=== PATIENT | male | born 2000 | race African-American/Black ===

== ENCOUNTER 2019-03-16 16:40 | Emergency (ER) | payer OTHER ==
[~2019-03-16] VITALS: Ht 170.2 cm; Wt 82.7 kg
[2019-03-16 16:41] VITALS: BP 141/79
--- NOTE | 2019-03-16 17:14 | REP ---
Clinical: Trauma/injury. Technique: AP, lateral, bilateral oblique views of the left first digit. Findings: Soft-tissue swelling at the nail bed overlying the distal phalanx is suggested. No subcutaneous emphysema or foreign body. The osseous structures and joint spaces appear intact without acute fracture or dislocation. Impression: Swelling over the distal phalanx. No acute fracture or dislocation. Electronically Signed by Shadi Russo MD 03/16/2019 05:06 P
[2019-03-16] MEDS ORDERED: ADACEL/BOOSTRIX VACCINE (DIPHTH/PERTUSS/ACELL/TETANUS)0.5ML SYR (90715) IM ONE (17:30)
[2019-03-16] MEDS ORDERED: IBUPROFEN 600 MG TAB PO ONE (17:30)
== END 2019-03-16 18:01 | disposition home or self-care (01) ==
LOC: M ED 16:40
DX: S60.112A Contusion of left thumb with damage to nail, initial encounter (principal); W23.0XXA Caught, crushed, jammed, or pinched between moving objects, initial encounter; Y92.89 Other specified places as the place of occurrence of the external cause; Y99.1 Military activity; F17.210 Nicotine dependence, cigarettes, uncomplicated

== ENCOUNTER 2019-03-23 11:47 | Emergency (ER) | payer OTHER ==
[~2019-03-23] VITALS: Ht 170.2 cm; Wt 83.6 kg
[2019-03-23] MEDS ORDERED: NEOSPORIN OINT 0.9 GM PKT (FLOOR STOCK) TOP ONE (14:30)
[2019-03-23 14:45] VITALS: BP 144/76
== END 2019-03-23 14:48 | disposition home or self-care (01) ==
LOC: M ED 11:47
DX: S61.112D Laceration without foreign body of left thumb with damage to nail, subsequent encounter (principal); W23.0XXD Caught, crushed, jammed, or pinched between moving objects, subsequent encounter; Y92.89 Other specified places as the place of occurrence of the external cause; Y93.9 Activity, unspecified; Y99.1 Military activity; Z72.0 Tobacco use

== ENCOUNTER 2023-05-01 13:55 | Emergency (ER) | payer OTHER ==
[~2023-05-01] VITALS: Ht 167.6 cm; Wt 103.2 kg
[2023-05-01] MEDS ORDERED: ACETAMINOPHEN TAB 650MG DOSE (2X325MG) PO ONE (14:10)
[2023-05-01] MEDS ORDERED: ZOLO25TA PO (14:11)
[2023-05-01] MEDS ORDERED: BUSP5TA PO (14:12)
[2023-05-01 17:48] VITALS: BP 144/73; TEMP 98.1; O2SAT 98
== END 2023-05-01 17:50 | disposition home or self-care (01) ==
LOC: EDBD 13:55 → M ED 13:55
DX: S92.352A Displaced fracture of fifth metatarsal bone, left foot, initial encounter for closed fracture (principal); S89.302A Unspecified physeal fracture of lower end of left fibula, initial encounter for closed fracture; V03.00XA Pedestrian on foot injured in collision with car, pick-up truck or van in nontraffic accident, initial encounter; Y92.410 Unspecified street and highway as the place of occurrence of the external cause; Z79.899 Other long term (current) drug therapy

== ENCOUNTER 2023-11-15 14:52 | Emergency (ER) | payer OTHER ==
[~2023-11-15] VITALS: Ht 170.2 cm; Wt 109.5 kg
[~2023-11-15 14:52] MED LIST: BUSP5TA PO; ZOLO25TA PO
[2023-11-15] MEDS ORDERED: LIDOCAINE 1% MDV 20ML VIAL SC ONE (16:45)
[2023-11-15] MEDS ORDERED: cefTRIAXone SOD 2GM VIAL IM ONE (16:45)
[2023-11-15] MEDS ORDERED: LIDOCAINE 1% SDV 5ML VIAL DILUENT ONE (16:45)
[2023-11-15] MEDS ORDERED: KETO10TAB PO (18:24)
[2023-11-15] MEDS ORDERED: CEPH250T PO (18:26)
[2023-11-15 18:44] VITALS: BP 157/79; TEMP 98.2; O2SAT 98
== END 2023-11-15 18:48 | disposition home or self-care (01) ==
LOC: M ED 14:52
DX: S62.634B Displaced fracture of distal phalanx of right ring finger, initial encounter for open fracture (principal); Y92.69 Other specified industrial and construction area as the place of occurrence of the external cause; Y99.0 Civilian activity done for income or pay; W11.XXXA Fall on and from ladder, initial encounter; Z79.2 Long term (current) use of antibiotics; Y93.9 Activity, unspecified
CPT/HCPCS: 73140; 96372; 99284; J0665; J0696